=== PATIENT | female | born 1960 | race Caucasian/White ===

== ENCOUNTER 2016-11-07 10:46 | Emergency (ER) | payer OTHER ==
[2016-11-07 11:36] LABS: BASOPHILS 0.3 % (0-2); EOSINOPHILS 1.5 % (0-7); HEMATOCRIT 41.3 % (36.0-48.0); IMMATURE GRANULOCYTES 0.4 % (0-5); LYMPHOCYTES 23.1 % (15-50); MCHC 33.9 g/dL (31.0-37.0); MCV 85.5 fL (80.0-100.0); MEAN PLATELET VOLUME 10.6 fL (7.4-10.4); NEUTROPHILS 67.7 % (40-80); PLATELET COUNT 161 10x3/uL (130-400); RBC 4.83 10x6/uL (4.00-5.40); RDW 12.7 % (11.5-14.5); WBC 7.3 10x3/uL (4.8-10.8)
[2016-11-07 11:53] LABS: ALBUMIN 4.4 g/dL (3.4-5.0); ALKALINE PHOSPHATASE 51 U/L (46-116); ALT (SGPT) 47 U/L (10-68); BILIRUBIN - TOTAL 0.61 mg/dL (0.2-1.3); CALC OSMOLALITY 285 mosm/kg (275-300); CALCIUM 9.2 mg/dL (8.5-10.1); CARBON DIOXIDE 23.4 mmol/L (21.0-32.0); CHLORIDE - SERUM 104 mmol/L (98-107); CREATININE - SERUM 0.7 mg/dL (0.6-1.3); GLUCOSE 202 mg/dL (74-106); POTASSIUM - SERUM 3.8 mmol/L (3.5-5.1); PROTEIN - SERUM 7.6 g/dL (6.4-8.2); SODIUM 140 mmol/L (136-145); UREA NITROGEN 15 mg/dL (7-18); eGFR NON AFRICAN AMERICAN > 90 mL/min (90-120)
[2016-11-07 12:06] LABS: CKMB 0.6 U/L (0.0-3.6); CREATINE KINASE 98 UL (21-215); THYROID STIMULATING HORMONE 1.94 uIU/mL (0.36-3.74); TROPONIN-I < 0.017 ng/mL (0.000-0.060)
== END 2016-11-07 12:52 | disposition home or self-care (01) ==
LOC: D.ER 10:46
PROVIDERS: Emergency Medicine
DX: R07.9 Chest pain, unspecified (principal); K21.9 Gastro-esophageal reflux disease without esophagitis; E11.9 Type 2 diabetes mellitus without complications; R94.31 Abnormal electrocardiogram [ECG] [EKG]